=== PATIENT | female | born 1970 | race Caucasian/White ===

== ENCOUNTER 2016-02-19 14:08 | Emergency (ER) | payer OTHER ==
[~2016-02-19] VITALS: Ht 162.6 cm; Wt 63.5 kg
[~2016-02-19 14:08] MED LIST: AMPH20TA2 PO; ATV/2 PO; BACL10TA PO; GABA800T PO; HYDR-4079 PO; IBUP-1428 PO; OXYC20TA50 PO; PROM25TA9 PO; SIMV40TA2 PO; TRAM-10 PO
[2016-02-19 14:10] VITALS: TEMP 36.8; Ht 162.6 cm; Wt 63.5 kg
[2016-02-19 15:20] LABS: BASO ABS # 0.05 K/uL (0-0.2); COMPLETE YES; EOS % 2.8 %; HEMATOCRIT 38.3 % (37-47); LYMPH % 35.8 %; LYMPH ABS # 1.78 K/uL (1.2-3.4); MEAN CELL VOLUME 88.9 fL (80-100); MEAN CORPUSCULAR HEMOGLOBIN 29.5 pg (25-34); MEAN CORPUSCULAR HGB CONC 33.2 g/dl (32-36); MEAN PLATELET VOLUME 8.7 fL (7.4-10.4); MONO % 7.4 %; PLATELET COUNT 220 K/uL (130-400); RED BLOOD COUNT 4.31 M/uL (4.2-5.4); WHITE BLOOD COUNT 4.97 K/uL (4.8-10.8)
[2016-02-19 15:39] LABS: BUN/CREATININE RATIO 6.6 (10-20); CALCIUM 8.6 mg/dl (8.5-10.1); CREATININE 0.67 mg/dl (0.60-1.20); POTASSIUM 3.6 mmol/L (3.5-5.1)
[2016-02-19 15:41] LABS: ALB/GLOB RATIO 1.1 (0.9-2)
[2016-02-19] MEDS ORDERED: MUPI2OIN9 TOP (16:21)
[2016-02-19] MEDS ORDERED: CLOT1CRE80 TOP (16:21)
[2016-02-19] MEDS ORDERED: CEPH500C PO (16:21)
--- NOTE | 2016-02-19 16:25 | EMERGENCY ROOM VISIT NOTE ---
History First contact with patient: 14:19 Chief Complaint: INFECTION Stated Complaint: INFECTION AROUND MOUTH Nursing Triage Summary: Patient c/o infection around her mouth, went to family Dr and he told her he had no idea what it was. Began 1 1/2 weeks ago. Had it happen last month too, and was getting radiation, was prescribed keflex and it went away. It starts as a crack. Last radiation over one month ago. History of Present Illness The patient is a 45 year old female who presents to the Emergency Room via private vehicle with complaints of "infection around mouth". The patient states that she began with an infection around her mouth approximately 1 month ago. She was undergoing radiation for breast cancer and developed the red rash around her lips. She states that the radiation created a superficial infection on the skin and she was prescribed Keflex. She states that the Keflex also cleared up the redness around her mouth. She states that this redness begins after cracks in the corners of her mouth develop. The patient last had radiation 1 month ago and is not chemotherapy. The patient is a current smoker with half pack per day. The patient denies any numbness or tingling in her extremities. The redness around the mouth is particularly in the corners, and is painful and jarvis and is stinging in nature. There is no involvement within the mouth. The patient had another round of Keflex and the redness seemed to subside for some time but is now back. She went to see her family doctor yesterday who states they have never seen it before, she feels he is uneducated and therefore she is here today. She denies any fevers, chills, abdominal pain , other rashes. Review of Systems A complete 6-point Review of Systems was discussed with the patient, with pertinent positives and negatives listed in the History of Present Illness. All remaining Review of Systems questions can be considered negative unless otherwise specified. Past Medical/Surgical History Skin problems, pneumonia, kidney stones, bilateral knee, lumpectomy Family History Diabetes, high blood pressure, cancer, lung disease, kidney disease or stones, seizures. Social History Smoking Status: Current Every Day Smoker Occupation Status: employed Social History: Patient is unemployed, and lives at home with . She admits to tobacco use but denies alcohol use. Current/Historical Medications Scheduled Amphetamine-Dextroamphetamine 20MG (Adderall 20MG), 20 MG PO TID Aripiprazole (Abilify *), 10 MG PO QAM Baclofen (Lioresal), 10 MG PO BID Cephalexin Monohydrate (Keflex), 500 MG PO QID Cholecalciferol (Vitamin D), 2,000 UNITS PO QAM Citalopram (Celexa *), 40 MG PO QAM Clotrimazole (Topical) (Anti-Fungal), 1 APPLN TOP BID Gabapentin (Neurontin), 800 MG PO TID Hydrocodone/Acetaminophen 10MG/325MG (Mentor 10MG/325MG), 1 TAB PO 5XDAY Ibuprofen (Motrin), 1 TAB PO QID Mupirocin (Bactroban), 1 APPL TOP BID Oxycodone Hcl (Oxycontin), 40 MG PO Q12 Simvastatin (Zocor), 40 MG PO QAM Tramadol (Ultram), 50 MG PO QID Allergies Coded Allergies: Aspirin (Verified Allergy, Severe, PROBLEMS BREATHING, 02/19/16) Penicillins (Verified Allergy, Mild, ITCHING/HIVES, 02/19/16) Calcium Channel Blockers (Verified Allergy, Unknown, UNKNOWN, 02/19/16) Naproxen (Verified Allergy, Unknown, SOB, 02/19/16) TAKES IBUPROFEN AT HOME without issue Propoxyphene (Verified Allergy, Unknown, BREATHING PROBLEMS, 02/19/16) Physical Exam Vital Signs Date Time Temp Pulse Resp B/P Pulse Ox O2 Delivery O2 Flow Rate FiO2 02/19/16 16:44 76 14 113/72 97 02/19/16 16:03 78 15 118/78 99 Room Air 02/19/16 14:10 36.8 77 17 119/81 98 Room Air Physical Exam VITAL SIGNS - Vital signs and nursing notes were reviewed. Patient is afebrile , normotensive, non-tachycardic and is saturating well on room air 98%. GENERAL -45-year-old female appearing her stated age who is in no acute distress. Communicates well with provider and answers questions appropriately. SKIN - there is evidence of cheilitis with small cracks in the skin at the corner of the mouth. This has surrounding erythema localized to this region. The area is also covered with Vaseline. There appears to be no intraoral involvement. HEAD - NC/AT. EYES - PERRL with EOMI bilaterally. Sclera anicteric. Palpebral conjunctiva pink and moist with no injection noted. EARS - No deformities of external structures noted on gross examination bilaterally. No hemotympanum. External auditory canals without discharge or otorrhea. Tympanic membranes pearly samano without retraction or bulging. No fluid or purulent material visualized behind the TM. Handle of malleus, umbo, cone of light, pars tensa/flaccid all easily visualized. NOSE - Midline and without cyanosis. MOUTH/OROPHARYNX - Without perioral cyanosis. Buccal mucosa pink and moist and without leukoplakia. Tongue midline with equal elevation of palate bilaterally. No tonsillar hypertrophy, erythema, or exudates noted. Fair dentition noted. There are no white patches suggestive of shilpi intraorally. The erythema at the corners of the mouth is consistent with that of cheilitis, and is likely bacterial or fungal in nature. NECK - Neck with FROM. Supple to palpation. LUNGS - Chest wall symmetric without accessory muscle use, intercostals retractions, or central cyanosis. Normal vesicular breath sounds CTA B/L. No wheezes, rales, or rhonchi appreciated. CARDIAC - RRR with S1/S2. No murmur, rubs, or gallops appreciated. Medical Decision & Procedures Laboratory Results 02/19/16 15:10 Red Blood Count 4.31, Mean Corpuscular Volume 88.9, Mean Corpuscular Hemoglobin 29.5, Mean Corpuscular Hemoglobin Concent 33.2, Mean Platelet Volume 8.7, Neutrophils (%) (Auto) 53.0, Lymphocytes (%) (Auto) 35.8, Monocytes (%) (Auto) 7.4, Eosinophils (%) (Auto) 2.8, Basophils (%) (Auto) 1.0, Neutrophils # (Auto) 2.63, Lymphocytes # (Auto) 1.78, Monocytes # (Auto) 0.37, Eosinophils # (Auto) 0.14, Basophils # (Auto) 0.05 02/19/16 15:10 Test 02/19/16 15:10 White Blood Count 4.97 K/uL (4.8-10.8) Red Blood Count 4.31 M/uL (4.2-5.4) Hemoglobin 12.7 g/dL (12.0-16.0) Hematocrit 38.3 % (37-47) Mean Corpuscular Volume 88.9 fL (80-100) Mean Corpuscular Hemoglobin 29.5 pg (25-34) Mean Corpuscular Hemoglobin Concent 33.2 g/dl (32-36) Platelet Count 220 K/uL (130-400) Mean Platelet Volume 8.7 fL (7.4-10.4) Neutrophils (%) (Auto) 53.0 % Lymphocytes (%) (Auto) 35.8 % Monocytes (%) (Auto) 7.4 % Eosinophils (%) (Auto) 2.8 % Basophils (%) (Auto) 1.0 % Neutrophils # (Auto) 2.63 K/uL (1.4-6.5) Lymphocytes # (Auto) 1.78 K/uL (1.2-3.4) Monocytes # (Auto) 0.37 K/uL (0.11-0.59) Eosinophils # (Auto) 0.14 K/uL (0-0.5) Basophils # (Auto) 0.05 K/uL (0-0.2) RDW Standard Deviation 41.7 fL (36.4-46.3) RDW Coefficient of Variation 12.8 % (11.5-14.5) Immature Granulocyte % (Auto) 0.0 % Immature Granulocyte # (Auto) 0.00 K/uL (0.00-0.02) Anion Gap 8.0 mmol/L (3-11) Est Creatinine Clear Calc Drug Dose 89.7 ml/min Estimated GFR () 121.3 Estimated GFR (Non- 104.7 BUN/Creatinine Ratio 6.6 (10-20) Calcium Level 8.6 mg/dl (8.5-10.1) Total Bilirubin 0.1 mg/dl (0.2-1) Aspartate Amino Transf (AST/SGOT) 14 U/L (15-37) Alanine Aminotransferase (ALT/SGPT) 10 U/L (12-78) Alkaline Phosphatase 92 U/L (45-117) Total Protein 6.3 gm/dl (6.4-8.2) Albumin 3.3 gm/dl (3.4-5.0) Globulin 3.0 gm/dl (2.5-4.0) Albumin/Globulin Ratio 1.1 (0.9-2) Medical Decision Patient was seen and evaluated as above. After obtaining a thorough history and physical examination CBC was obtained to rule out any immunocompromising or pancytopenic events. This did not reveal any leukocytosis, or anemia. The CMP did reveal a decreased BUN at 4 which was discussed with the patient. There were no other significant abnormalities noted. The patient requested Keflex and initially I did not feel that this was appropriate as I was seeing what the latest literature was suggesting for treatment after discussing this with my attending. In review of UpToDate, it appears that an antifungal and antibacterial our best to use. I initially wanted to use fluconazole orally as well as Bactroban topically to help treat this potential bacterial or fungal infection. When I was prescribed fluconazole there was a flag identified pharmacologically as this medication interacts with her Celexa as well as her Zocor. This can cause life-threatening ailments such as QT prolongation, as well as rhabdomyolysis. Benefits versus risks were weighed and it was decided to forego the antifungal pill. The alternative was a cream but I did not want to use a fungal cream with an antibacterial cream at the same time. Therefore again after weighing benefits versus risks I did elect to put her on an oral antibiotic was Keflex 500 mg by mouth 4 times a day for 7 days as well as an antifungal cream which was sent to her pharmacy. She was also given a Bactroban ointment. She was instructed to take the Keflex as well as use the antifungal cream for the next 1-2 weeks. If at this point there is no resolution she is to switch to the antibacterial cream. She verbalized understanding. The patient was educated upon management. She was instructed to follow-up with her family doctor for recheck of the BUN and her condition today. She was educated upon worrisome symptoms in which to return. She had questions answered prior to discharge and she was discharged home in good condition. I decided not suspect any emergent or surgical nature to the patient 's family at this time. In the evaluation and treatment of this patient the following differential diagnoses were entertained: Cheilitis, thrush, Shilpi albicans infection, staph aureus infection, vitamin deficiency, among others. Impression Primary Impression: Cheilitis Departure Information Dispostion Home / Self-Care Condition GOOD Prescriptions Clotrimazole (Topical) (ANTI-FUNGAL) 1 % Cre 1 APPLN TOP BID for 14 Days, #1 TUBE Prov: Diego Lopez PA-C 02/19/16 Mupirocin (BACTROBAN) 2 % Oin 1 APPL TOP BID for 10 Days, #22 GM Prov: Diego Lopez PA-C 02/19/16 Cephalexin Monohydrate (Keflex) 500 Mg Cap 500 MG PO QID for 7 Days, #28 CAP Prov: Diego Lopez PA-C 02/19/16 Referrals No Doctor, Assigned (PCP) Patient Instructions A Signature Page, My [facility] Additional Instructions You were seen in the emergency department for an infection around her mouth. This is called cheilitis. You may begin the Keflex as we discussed. Please then use the topical antifungal cream. This is one pea sized amount applied to the area twice daily. Please do not with this in your mouth. If after 2weeks this persists, you may discontinue the topical antifungal and then begin with the topical antibiotic. It is recommended that you do not take both of these creams at the same time. As we discussed there was an interaction between the oral antifungal and your medication that was felt to be too much risk versus benefit. Your BUN today was 4, although this is not an emergent value it is recommended you have this repeated with your family doctor. Please call your family doctor to schedule a follow-up from today's visit. Please return to the emergency department with any new/concerning symptoms.
[2016-02-19 16:44] VITALS: BP 113/72; PULSE 76; O2SAT 97
[2016-02-19] MEDS ORDERED: CLX20 PO (17:07)
[2016-02-19] MEDS ORDERED: CHOL20009 PO (19:02)
[2016-02-19] MEDS ORDERED: ABL5 PO (20:51)
[2016-09-10] MEDS ORDERED: FLUT0.15 NAE (09:29)
[2016-09-10] MEDS ORDERED: IBUP-1428 PO (09:29)
[2016-09-10] MEDS ORDERED: CETI10TA84 PO (09:29)
[2016-09-10] MEDS ORDERED: ALBU18002 INH (09:29)
[2016-09-10] MEDS ORDERED: MONT1TAB3 PO (09:29)
== END 2016-02-19 16:47 | disposition home or self-care (01) ==
LOC: C.EDB 14:11 → C.EDD 16:47
DX: K13.0 Diseases of lips (principal); F17.200 Nicotine dependence, unspecified, uncomplicated; Z87.442 Personal history of urinary calculi; Z79.899 Other long term (current) drug therapy; Z88.0 Allergy status to penicillin; Z88.6 Allergy status to analgesic agent; Z88.8 Allergy status to other drugs, medicaments and biological substances; Z92.3 Personal history of irradiation; Z83.3 Family history of diabetes mellitus; Z82.49 Family history of ischemic heart disease and other diseases of the circulatory system; Z80.9 Family history of malignant neoplasm, unspecified; Z84.1 Family history of disorders of kidney and ureter; Z82.0 Family history of epilepsy and other diseases of the nervous system

== ENCOUNTER → 2016-04-28 | Outpatient (CLI) | payer OTHER ==
[~2016-04-28] MED LIST changes: +ABL/5 PO; +ABL5 PO; +ALBU18002 INH; -ATV/2 PO; +CETI10TA84 PO; +CHOL20009 PO; +CITA40TA12 PO; +CLOT1CRE80 TOP; +CLX20 PO; +FLUT0.15 NAE; +MONT1TAB3 PO; -PROM25TA9 PO
--- NOTE | 2016-04-28 14:27 | MAMMOGRAPHY REPORT ---
UNILATERAL RIGHT DIGITAL DIAGNOSTIC MAMMOGRAM TOMOSYNTHESIS WITH CAD: 04/28/2016 CLINICAL HISTORY: History of right breast cancer status post lumpectomy September 2015 and radiation . The patient reports no current complaints. TECHNIQUE: Breast tomosynthesis in addition to standard 2D mammography was performed. Current study was also evaluated with a Computer Aided Detection (CAD) system. Right CC and MLO 2-D and tomosynt hesis images and spot magnification right cc and ML views were obtained. COMPARISON: Comparison is made to exams dated: 09/03/2015 mammogram, 08/27/2015 mammogram, 02/25/2015 mammogram, 09/03/2015 stereotactic biopsy, 08/23/2014 mammogram, and 08/30/2014 mammogram - [facility]. BREAST COMPOSITION: The tissue of the right breast is heterogeneously dense, which may obscure smal l masses. FINDINGS: There are new post surgical changes in the right upper inner quadrant from prior lumpecto my, including architectural distortion and surgical clips at the lumpectomy bed. There is mild diff use right breast skin thickening, likely a sequela of radiation therapy. There are no suspicious ma sses, calcifications, or areas of nonsurgical architectural distortion noted in the right breast. IMPRESSION: ACR-BI-RADS CATEGORY 3: PROBABLY BENIGN Expected posttreatment changes in the right breast, without mammographic evidence of malignancy in t he right breast. Recommend bilateral diagnostic tomosynthesis mammograms in 6 months, to reevaluate the right breast posttreatment changes and for routine mammography of the left breast. The patient has been verbally notified of the results. Approximately 10% of breast cancers are not detected with mammography. A negative mammographic repor t should not delay biopsy if a clinically suggestive mass is present. Juany Butler M.D. ah/:04/28/2016 09:25:05 [employer] Lead Teacher: Merna MELTON(Colt)(M), [facility] letter sent: Personal History 3 BI-RADS Code: ACR-BI-RADS Category 3: Probably Benign
== END | disposition home or self-care (01) ==
LOC: C.MAMM 08:55
PROVIDERS: ATTEND Radiology Radiation Oncology
DX: Z08 Encounter for follow-up examination after completed treatment for malignant neoplasm (principal); Z85.3 Personal history of malignant neoplasm of breast

== ENCOUNTER → 2016-05-17 | Outpatient (CLI) | payer OTHER ==
[2016-05-17 17:30] LABS: BLOOD UREA NITROGEN 4 mg/dl (7-18); BUN/CREATININE RATIO 5.5 (10-20); CARBON DIOXIDE 24 mmol/L (21-32); CHLORIDE 108 mmol/L (98-107); CHOLESTEROL 170 mg/dl (0-200); CREATININE 0.71 mg/dl (0.60-1.20); GLUCOSE 75 mg/dl (70-99); POTASSIUM 3.4 mmol/L (3.5-5.1); SODIUM 142 mmol/L (136-145); TRIGLYCERIDES 178 mg/dl (0-150); VERY LOW DENSITY LIPOPROT CALC 36 mg/dl
[2016-05-17 17:34] LABS: CHOLESTEROL/HDL RATIO 6.5; HDL CHOLESTEROL 26 mg/dl; LDL CHOLESTEROL CALCULATED 108 mg/dl
== END | disposition home or self-care (01) ==
LOC: C.LABPVFM 11:50
PROVIDERS: ATTEND Nurse Practitioner
DX: E78.5 Hyperlipidemia, unspecified (principal); G43.909 Migraine, unspecified, not intractable, without status migrainosus; E55.9 Vitamin D deficiency, unspecified; Z51.81 Encounter for therapeutic drug level monitoring; Z79.1 Long term (current) use of non-steroidal anti-inflammatories (NSAID)

== ENCOUNTER → 2016-06-17 | Outpatient (CLI) | payer OTHER ==
[2016-06-17 17:37] LABS: BASO % 0.6 %; BASO ABS # 0.03 K/uL (0-0.2); COMPLETE YES; EOS % 2.9 %; HEMATOCRIT 33.9 % (37-47); IG% 0.2 %; LYMPH % 43.6 %; LYMPH ABS # 2.37 K/uL (1.2-3.4); MEAN CELL VOLUME 90.9 fL (80-100); MEAN CORPUSCULAR HEMOGLOBIN 29.8 pg (25-34); MEAN CORPUSCULAR HGB CONC 32.7 g/dl (32-36); MEAN PLATELET VOLUME 9.5 fL (7.4-10.4); MONO % 6.6 %; NEUT % 46.1 %; PLATELET COUNT 276 K/uL (130-400); RED BLOOD COUNT 3.73 M/uL (4.2-5.4); WHITE BLOOD COUNT 5.43 K/uL (4.8-10.8)
== END | disposition home or self-care (01) ==
LOC: C.LABPVFM 14:43
PROVIDERS: ATTEND Nurse Practitioner
DX: R53.83 Other fatigue (principal); R60.9 Edema, unspecified

== ENCOUNTER → 2016-09-07 | Outpatient (CLI) | payer OTHER ==
--- NOTE | 2016-09-07 15:29 | DIAGNOSTIC IMAGING REPORT ---
TWO VIEW CHEST CLINICAL HISTORY: Peripheral edema. Dyspnea and tachycardia. FINDINGS: PA and lateral chest radiographs are compared to study dated 09/13/2009. The heart is top normal for projection. There is atherosclerotic calcification of the thoracic aorta. The pulmonary vasculature is noncongested. Linear atelectasis versus scarring is seen in the left lower lung. No airspace consolidation or pleural effusion is identified. There is no pneumothorax. The skeletal structures are osteopenic. Degenerative change and mild hyperkyphosis are noted in the thoracic spine. There are healed right-sided rib fractures. IMPRESSION: No active disease in the chest. Electronically signed by: Grayson Faria M.D. 09/07/2016 3:28 PM Dictated Date/Time: 09/07/2016 3:27 PM
[2016-09-07 18:16] LABS: ALT/SGPT 19 U/L (12-78); AST/SGOT 13 U/L (15-37); BLOOD UREA NITROGEN 6 mg/dl (7-18); BUN/CREATININE RATIO 6.6 (10-20); CALCIUM 8.6 mg/dl (8.5-10.1); CARBON DIOXIDE 26 mmol/L (21-32); CHLORIDE 108 mmol/L (98-107); CREATININE 0.83 mg/dl (0.60-1.20); GLUCOSE 58 mg/dl (70-99); POTASSIUM 3.4 mmol/L (3.5-5.1); SODIUM 141 mmol/L (136-145)
[2016-09-07 18:26] LABS: ALB/GLOB RATIO 1.3 (0.9-2); ALKALINE PHOSPHATASE 59 U/L (45-117)
== END | disposition home or self-care (01) ==
LOC: C.RADPV 14:45
PROVIDERS: ATTEND Nurse Practitioner
DX: R60.9 Edema, unspecified (principal); R06.02 Shortness of breath; R00.0 Tachycardia, unspecified

== ENCOUNTER → 2016-09-10 | Outpatient (CLI) | payer OTHER ==
[2016-09-10 09:22] VITALS: BP 90/62; PULSE 92; TEMP 37.1; O2SAT 95
--- NOTE | 2016-09-10 10:43 | Radiation Oncology Follow-Up ---
Radiation Oncology Follow-Up Date of Visit Sep 10, 2016. Reason For Visit 6 month follow-up Radiation Completion Date 01/06/16 hypofractionation. Diagnosis (1) Breast cancer Status: Acute Onset Date: 09/03/2015 Stage: l (A) Permanent Comment: Abnormal mammogram 08/27/2015 Status post stereotactic biopsy 09/03/2015 revealing infiltrating ductal carcinoma Estrogen receptor positive Status post breast MRI 09/29/2015 Status post MRI guided biopsy of the left breast 10/01/2015 benign Status post lumpectomy with sentinel lymph node biopsy 10/08/2015 No residual tumor Stage pT1a p N0M0 Status post completion of radiation therapy 01/06/2016 received 5130 cGy utilizing hypo-fractionation Patient declined antiestrogen therapy Last Edited By: Christen Wagner on Feb 13, 2016 09:46 History of Present Illness This is a 45-year-old white female who had an abnormal mammogram 08/30/2014. This showed grouped calcifications in the right breast at 12:00, which are probably benign and likely represent milk of calcium. Recommend follow-up mammogram of the right breast in 6 months for reevaluation. Multiple bilateral benign cysts. Questionable architectural distortion in the right lateral breast did not persist on additional views, without corresponding sonographic abnormality evident. Findings benign and felt to represent normal fibroglandular tissue. 6 month mammogram was recommended for stability. She had a recheck mammogram 02/25/2015. This showed stable 13 mm cluster of probable benign microcalcifications within the central right breast dating back to 08/30/2014. However, longer stability as needed and another short interval follow-up right mammogram with repeat spot magnification views is recommended in 6 months. She'll be due for left breast mammogram at that time. She had a bilateral mammogram 08/27/2015. This showed abnormality of the right breast and stereotactic guided right breast biopsy was recommended for a 9 mm cluster of amorphous microcalcifications in the right central breast. She underwent a stereotactic guided biopsy 09/03/2015. This revealed infiltrating ductal carcinoma grade 1. Assure receptor was positive. There was no DCIS or LCIS. There was no lymphovascular invasion. There were 2 sites that were 0.1 and 0.25 cm in greatest dimension. Specimen [id number]. She then underwent breast MRIs 09/29/2015. This showed suspect ability artifact from a metallic biopsy marker is seen in the central right breast, denoting the location of the previous stereotactic biopsy yielding an infiltrating carcinoma. This is very subtle possibly non-mass enhancement versus background parenchymal enhancement medial and superior to the biopsy marker measuring approximately 3 cm in diameter. This is located within 2 cm of the biopsy marker and can likely be excised at the time of definitive surgical management. It should be noted that residual microcalcifications are present mammographically 1.9 cm laterally and 1.3 cm superior to the metallic biopsy marker mammographically, and considered bracketing at time of definitive surgery, if breast conservation therapy is desired. 3 conspicuous enhancing foci in the 6:00 medial to posterior left breast that are intermediate. Although these could be within the range of background, given moderate back on parenchymal enhancement bilaterally, the most anterior lesion demonstrates central suspicious without kinetics. Further second look ultrasound and possible ultrasound-guided biopsy was recommended. She underwent an MRI guided biopsy of the left breast finding. On 10/01/2015 this showed a benign area of fibrocystic changes. Specimen [id number]. She underwent a lumpectomy and sentinel lymph node biopsy 10/08/2015. The lumpectomy specimen showed atypical lobular hyperplasia. The specimen was negative for DCIS and invasive carcinoma. Additional inferior margin was taken and was negative for DCIS and invasive cancer. An additional superior margin also negative for DCIS and invasive cancer. One sentinel lymph node was evaluated and was negative for metastatic disease. Specimen [id number]. With this finding she was referred to our office to discuss radiation therapy. She underwent CT simulation and was found to be a candidate for hypo- fractionation. Radiation was completed 01/06/2016. She received 5130 cGy. Interim History She denies any changes to her breasts. She has noted no masses or tenderness no change of the axilla. She's had no swelling of her arm. She is up-to-date on mammography. She had been seen previously in medical oncology and did decline antiestrogen therapy. She is having some health issues and is being followed by her primary care Susu Adams nurse practitioner. She has of late had a problem with pinkeye, ear infection, fungal infection, and swelling of the lower extremities. She is now on Lasix. She is to follow-up with a phone call on Tuesday with update to Ms. Adams. Allergies Coded Allergies: Aspirin (Verified Allergy, Severe, PROBLEMS BREATHING, 02/19/16) Penicillins (Verified Allergy, Mild, ITCHING/HIVES, 02/19/16) Calcium Channel Blockers (Verified Allergy, Unknown, UNKNOWN, 02/19/16) Naproxen (Verified Allergy, Unknown, SOB, 02/19/16) TAKES IBUPROFEN AT HOME without issue Propoxyphene (Verified Allergy, Unknown, BREATHING PROBLEMS, 02/19/16) Home Medications Scheduled Amphetamine-Dextroamphetamine 20MG (Adderall 20MG), 20 MG PO TID Aripiprazole (Abilify *), 10 MG PO QAM Baclofen (Lioresal), 10 MG PO BID Cetirizine (Zyrtec), 10 MG PO DAILY Cholecalciferol (Vitamin D), 2,000 UNITS PO QAM Citalopram (Celexa *), 40 MG PO QAM Clotrimazole (Topical) (Anti-Fungal), 1 APPLN TOP BID Fluticasone Propionate (Nasal) (Flonase Allergy Relief), 1 SPRAY MAGALYS BID Gabapentin (Neurontin), 800 MG PO TID Hydrocodone/Acetaminophen 10MG/325MG (Brooks 10MG/325MG), 1 TAB PO 5XDAY Montelukast Sodium (Singulair), 1 TAB PO DAILY Oxycodone Hcl (Oxycontin), 40 MG PO Q12 Simvastatin (Zocor), 40 MG PO QAM Scheduled PRN Albuterol Sulfate (Proair Respiclick), 1 PUFF INH QID PRN for Shortness of Breath Ibuprofen (Motrin), 800 MG PO QID PRN for Pain Tramadol (Ultram), 50 MG PO QID PRN for Pain Review of Systems Gastrointestinal: Symptoms: WNL Oral: Symptoms: No Problems Other Oral Symptoms: Currently w/fungal infection around outside of mouth - on medication now Respiratory: Symptoms: Productive Cough Sputum Character: Clear sputum and on occassion is yellow; Other Respiratory: Continues to smoke; Urinary: Symptoms: WNL Skin: Symptoms: No Problems Breast: Right Upper Arm Measurement: 28.3 Right Mid Arm Measurement: 23.5 Right Wrist Measurement: 15.8 Left Upper Arm Measurement: 27.5 Left Mid Arm Measurement: 23.0 Left Wrist Measurement: 15.8 Arm Dominence: Right Patient Cosmetic Evaluation: Good Staff Cosmetic Evalaluation: Good Physical Exam Vital Signs Date Time Temp Pulse Resp B/P (MAP) Pulse Ox O2 Delivery O2 Flow Rate FiO2 09/10/16 09:22 37.1 92 12 90/62 95 Pain: Patient Pain Scale: 0 - 10 Initial Pain Intensity: 0.0 Fatigue: None General Appearance: no apparent distress Eyes: normal inspection, EOMI ENT: normal ENT inspection, hearing grossly normal, pharynx normal, + pertinent finding (angular andrade low cyst) Neck: no adenopathy, thyroid normal Respiratory/Chest: lungs clear, no respiratory distress, no accessory muscle use Breast: Breast examination reveals well-healed incisions of the right breast. There is slight hyperpigmentation of the upper inner portion of the breast. There are no masses or tenderness and no axillary adenopathy. She has no skin retractions or nipple changes. Using the [place] score cosmesis she has a good outcome. Left breast showed no masses or tenderness and no axillary adenopathy. Cardiovascular: regular rate, rhythm, no gallop, no murmur Abdomen: normal bowel sounds, soft Extremities: + pertinent finding (+2 edema of the lower extremities, negative Homans sign) Neurologic/Psychiatric: no motor/sensory deficits, alert, normal mood/affect Skin: warm/dry Laboratory Studies Test 06/17/16 14:50 09/07/16 15:05 White Blood Count 5.43 K/uL (4.8-10.8) Red Blood Count 3.73 M/uL (4.2-5.4) Hemoglobin 11.1 g/dL (12.0-16.0) Hematocrit 33.9 % (37-47) Mean Corpuscular Volume 90.9 fL (80-100) Mean Corpuscular Hemoglobin 29.8 pg (25-34) Mean Corpuscular Hemoglobin Concent 32.7 g/dl (32-36) Platelet Count 276 K/uL (130-400) Mean Platelet Volume 9.5 fL (7.4-10.4) Neutrophils (%) (Auto) 46.1 % Lymphocytes (%) (Auto) 43.6 % Monocytes (%) (Auto) 6.6 % Eosinophils (%) (Auto) 2.9 % Basophils (%) (Auto) 0.6 % Neutrophils # (Auto) 2.50 K/uL (1.4-6.5) Lymphocytes # (Auto) 2.37 K/uL (1.2-3.4) Monocytes # (Auto) 0.36 K/uL (0.11-0.59) Eosinophils # (Auto) 0.16 K/uL (0-0.5) Basophils # (Auto) 0.03 K/uL (0-0.2) RDW Standard Deviation 48.1 fL (36.4-46.3) RDW Coefficient of Variation 14.3 % (11.5-14.5) Immature Granulocyte % (Auto) 0.2 % Immature Granulocyte # (Auto) 0.01 K/uL (0.00-0.02) Thyroid Stimulating Hormone (TSH) 2.300 uIu/ml (0.300-4.500) 3.300 uIu/ml (0.300-4.500) Sodium Level 141 mmol/L (136-145) Potassium Level 3.4 mmol/L (3.5-5.1) Chloride Level 108 mmol/L (98-107) Carbon Dioxide Level 26 mmol/L (21-32) Anion Gap 7.0 mmol/L (3-11) Blood Urea Nitrogen 6 mg/dl (7-18) Creatinine 0.83 mg/dl (0.60-1.20) Estimated GFR () 96.6 Estimated GFR (Non- 83.4 BUN/Creatinine Ratio 6.6 (10-20) Random Glucose 58 mg/dl (70-99) Calcium Level 8.6 mg/dl (8.5-10.1) Total Bilirubin 0.2 mg/dl (0.2-1) Aspartate Amino Transferase (AST) 13 U/L (15-37) Alanine Aminotransferase (ALT) 19 U/L (12-78) Alkaline Phosphatase 59 U/L (45-117) Pro-B-Type Natriuretic Peptide 117 pg/ml (0-450) Total Protein 6.1 gm/dl (6.4-8.2) Albumin 3.4 gm/dl (3.4-5.0) Globulin 2.7 gm/dl (2.5-4.0) Albumin/Globulin Ratio 1.3 (0.9-2) Additional Studies Patient: AYLIN PEÑA [facility] Rec: [id number] Address1: [address] [place] [address] Address2: Acct ID: [id number] Date: 1970 Sex: F Ref Phy: Christen Wagner PA-C Att Phy: Christen Wagner PA-C Thalia Phy: Apolinar See M.D. Inter Phy: Juany Butler MD [facility] Zip: [place] [address] SC: C.MAMM Report #: [id number] Hyperbaric Tech: STEW Diagnosis: F/U RADIATION Service Date: 04/28/16 MNE: [id number] Ordering Dr: Christen Wagner PA-C CC: Christen Wagner PA-C CONF: DICTATED BY: Juany Butler MD MAMMOGRAPHY REPORT UNILATERAL RIGHT DIGITAL DIAGNOSTIC MAMMOGRAM TOMOSYNTHESIS WITH CAD: 04/28/2016 CLINICAL HISTORY: History of right breast cancer status post lumpectomy September 2015 and radiation therapy. The patient reports no current complaints. TECHNIQUE: Breast tomosynthesis in addition to standard 2D mammography was performed. Current study was also evaluated with a Computer Aided Detection (CAD ) system. Right CC and MLO 2-D and tomosynthesis images and spot magnification right cc and ML views were obtained. COMPARISON: Comparison is made to exams dated: 09/03/2015 mammogram, 08/27/2015 mammogram, 02/25/2015 mammogram, 09/03/2015 stereotactic biopsy, 08/23/2014 mammogram, and 08/30/2014 mammogram - [facility]. BREAST COMPOSITION: The tissue of the right breast is heterogeneously dense, which may obscure small masses. FINDINGS: There are new post surgical changes in the right upper inner quadrant from prior lumpectomy, including architectural distortion and surgical clips at the lumpectomy bed. There is mild diffuse right breast skin thickening , likely a sequela of radiation therapy. There are no suspicious masses, calcifications, or areas of nonsurgical architectural distortion noted in the right breast. IMPRESSION: ACR-BI-RADS CATEGORY 3: PROBABLY BENIGN Expected posttreatment changes in the right breast, without mammographic evidence of malignancy in the right breast. Recommend bilateral diagnostic tomosynthesis mammograms in 6 months, to reevaluate the right breast posttreatment changes and for routine mammography of the left breast. The patient has been verbally notified of the results. Approximately 10% of breast cancers are not detected with mammography. A negative mammographic report should not delay biopsy if a clinically suggestive mass is present. Juany Butler M.D. ah/:04/28/2016 09:25:05 Photovoltaic Solar Cell Designer: Merna ROMAN)(Marlen), [facility] letter sent: Personal History 3 BI-RADS Code: ACR-BI-RADS Category 3: Probably Benign Dictated by: Juany Butler MD Signed by: Juany Butler MD Assessment & Plan Plan: Continue follow-up with her primary care provider. She is to call with an update in regards to the lower extremity swelling. She feels the Lasix is not helping currently. Continue with scheduled mammography. We asked her to return to our office in 1 year. She may call if she has any questions or concerns in the interim. Total Time In Follow-Up I spent 20 minutes 60 the patient is performing examination. I spent 15 minutes reviewing information in completing this note. AK Copy To Lionel Yeager M.D.; Adam Perez D.O.; Susu Soto CMarcianoRMarcianoNMarcianoP Problem Qualifiers (1) Breast cancer: Breast location: central portion of breast Estrogen receptor status: positive Patient sex: female Laterality: right Qualified Codes: C50.111 - Malignant neoplasm of central portion of right female breast; Z17.0 - Estrogen receptor positive status [ER+]
== END | disposition home or self-care (01) ==
LOC: C.ONC 09:05
PROVIDERS: ATTEND Physician Assistant Medical
DX: Z08 Encounter for follow-up examination after completed treatment for malignant neoplasm (principal); Z92.3 Personal history of irradiation; Z85.3 Personal history of malignant neoplasm of breast

== ENCOUNTER 2016-09-14 13:28 | Emergency (ER) | payer OTHER ==
[~2016-09-14] VITALS: Ht 162.6 cm; Wt 70.3 kg
[~2016-09-14 13:28] MED LIST changes: -ABL/5 PO; -CITA40TA12 PO
[2016-09-14 14:31] VITALS: O2SAT 95
--- NOTE | 2016-09-14 14:46 | DIAGNOSTIC IMAGING REPORT ---
SINGLE VIEW CHEST CLINICAL HISTORY: Generalized weakness. FINDINGS: An AP, portable, upright chest radiograph is compared to study dated 09/07/2016 and correlated with chest CT dated 05/27/2008. The examination is degraded by portable technique and patient rotation. The cardiomediastinal silhouette is unremarkable. Linear atelectasis versus scarring is seen in the left lower lung. No airspace consolidation or large pleural effusion is identified. No pneumothorax is seen. The skeletal structures appear osteopenic. There is a healed right-sided rib fracture. IMPRESSION: No acute cardiopulmonary abnormality. Electronically signed by: Grayson Faria M.D. 09/14/2016 2:45 PM Dictated Date/Time: 09/14/2016 2:43 PM
[2016-09-14 14:48] VITALS: Ht 162.6 cm; Wt 70.3 kg
[2016-09-14] MEDS ORDERED: CITA40TA12 PO (15:10)
[2016-09-14] MEDS ORDERED: ABL/5 PO (15:10)
[2016-09-14 15:17] LABS: ALT/SGPT 23 U/L (12-78); BLOOD UREA NITROGEN 7 mg/dl (7-18); BUN/CREATININE RATIO 8.4 (10-20); C-REACTIVE PROTEIN 0.42 mg/dl (0-0.29); CALCIUM 8.7 mg/dl (8.5-10.1); CARBON DIOXIDE 28 mmol/L (21-32); CHLORIDE 103 mmol/L (98-107); CREATININE 0.87 mg/dl (0.60-1.20); GLUCOSE 72 mg/dl (70-99); MAGNESIUM 1.7 mg/dl (1.8-2.4); POTASSIUM 3.2 mmol/L (3.5-5.1); SODIUM 136 mmol/L (136-145)
[2016-09-14 15:24] LABS: PARTIAL THROMBOPLASTIN RATIO 1.3
[2016-09-14 15:26] LABS: ALKALINE PHOSPHATASE 65 U/L (45-117); AST/SGOT 19 U/L (15-37); CKMB/CK RATIO 3.1 (0-3.0)
--- NOTE | 2016-09-14 15:29 | DIAGNOSTIC IMAGING REPORT ---
BILATERAL LOWER EXTREMITY VENOUS DOPPLER HISTORY: Bilateral leg swelling. COMPARISON STUDY: None. FINDINGS: There is normal compressibility, flow, and augmentation within the bilateral lower extremity deep venous systems. IMPRESSION: No DVT within the right or left lower extremity. Electronically signed by: Nestor Camacho M.D. 09/14/2016 3:28 PM Dictated Date/Time: 09/14/2016 3:28 PM
[2016-09-14 15:32] LABS: BASO % 0.4 %; BASO ABS # 0.03 K/uL (0-0.2); COMPLETE YES; HEMATOCRIT 34.6 % (37-47); IG% 0.1 %; LYMPH % 39.4 %; LYMPH ABS # 2.91 K/uL (1.2-3.4); MEAN CELL VOLUME 90.3 fL (80-100); MEAN CORPUSCULAR HEMOGLOBIN 31.1 pg (25-34); MEAN CORPUSCULAR HGB CONC 34.4 g/dl (32-36); MEAN PLATELET VOLUME 9.2 fL (7.4-10.4); MONO % 7.5 %; NEUT % 50.6 %; PLATELET COUNT 240 K/uL (130-400); RED BLOOD COUNT 3.83 M/uL (4.2-5.4); WHITE BLOOD COUNT 7.38 K/uL (4.8-10.8)
[2016-09-14 16:25] LABS: URINE APPEARANCE CLEAR (CLEAR); URINE BILIRUBIN NEG (NEG); URINE COLOR YELLOW; URINE NITRITE NEG (NEG); URINE PH 5.5 (4.5-7.5); URINE SPECIFIC GRAVITY 1.008 (1.000-1.030); UROBILINOGEN NEG (NEG)
[2016-09-14] MEDS ORDERED: OPTIRAY 320 IV PRN (16:30)
[2016-09-14 16:33] LABS: MANUAL MICROSCOPIC REQUIRED? NO; REVIEW REQ? NO
--- NOTE | 2016-09-14 17:00 | DIAGNOSTIC IMAGING REPORT ---
ABD/PELVIS IV CONTRAST ONLY CLINICAL HISTORY: 46 years-old Female presenting with LE swelling, breast CA, venogram phase. TECHNIQUE: Multidetector CT of the abdomen and pelvis was performed after the administration of intravenous contrast. IV contrast: 119 mL of Optiray 320. A dose lowering technique was used consistent with the principles of ALARA (as low as reasonably achievable). COMPARISON: 02/02/2010. CT DOSE (mGy.cm): The estimated cumulative dose is 606.97 mGy.cm. FINDINGS: Structural Metal Fabricator Apprentice topogram: Unremarkable. Lung bases: Scattered groundglass opacities at the lung bases, possibly atelectasis. Normal heart size. No pericardial or pleural effusion. Biopsy clip noted in the right breast. Liver: Normal morphology. No liver lesion. Patent hepatic vasculature. Biliary: No intrahepatic or extrahepatic biliary ductal dilatation. Normal gallbladder. Pancreas: Normal. Spleen: Normal. Adrenal glands: Normal. 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 Previously noted bilateral nephrolithiasis again noted although less appreciated given the presence of excreted contrast. The largest calculus is located at the left lower pole measuring 4 mm. No hydronephrosis. Mild dilatation of the left ureter without evidence of an obstructing calculus. Gastrointestinal tract: Mild stool burden throughout normal caliber colon. Normal appendix. No bowel obstruction. Peritoneal cavity: No free fluid or intraperitoneal gas. Bladder: Mild circumferential bladder wall thickening and mucosal hyperenhancement. Pelvic organs: Uterus and ovaries normal. Prominent follicles in the left ovary. Vasculature: Atherosclerosis of the normal caliber abdominal aorta. IVC patent as are the bilateral iliac vessels. Common femoral veins also patent. Lymph nodes: No enlarged lymph nodes in the abdomen or pelvis. Abdominal wall: Mild subcutaneous edema along the lateral proximal thighs. No significant discrepancy between the bilateral lower extremities. Musculoskeletal: Sclerotic lesion in the left ileum likely bone island, stable from prior. Mild degenerative change at L5-S1. No destructive osseous lesion. IMPRESSION: 1. No significant discrepancy of size of the proximal lower extremities. Patent veins. 2. Mild circumference of bladder wall thickening and mucosal hyperenhancement consistent with cystitis. Correlate with urinalysis. 3. Bilateral nephrolithiasis. 4. No evidence of metastatic disease in the abdomen or pelvis. Electronically signed by: Wolf Luna M.D. 09/14/2016 4:58 PM Dictated Date/Time: 09/14/2016 4:48 PM
--- NOTE | 2016-09-14 17:02 | DIAGNOSTIC IMAGING REPORT ---
CT ANGIOGRAM OF THE CHEST CLINICAL HISTORY: Elevated d-dimer. Lower extremity edema COMPARISON STUDY: Chest x-ray dated 09/14/2016. Chest CT scan dated 05/27/2008. TECHNIQUE: Following the IV administration of 118 cc of Optiray 320, CT angiogram of the chest was performed from the upper abdomen to the thoracic inlet utilizing the pulmonary embolus protocol. Images are reviewed in the axial, sagittal, and coronal planes. 3-D MIPS images are created and assessed. IV contrast was administered without complication. A dose lowering technique was utilized adhering to the principles of ALARA. FINDINGS: Thyroid: Imaged portions of the thyroid gland are normal in size and attenuation. Thoracic aorta: The thoracic aorta is normal in caliber and demonstrates bovine variant arch anatomy. The left vertebral artery arises directly from the arch. No dissection is seen. There is less than 50% stenosis in the left subclavian artery secondary to soft plaque. This is seen on axial image #[id number] Pulmonary vasculature: The pulmonary trunk is normal in caliber. There are no filling defects identified in main, lobar, or segmental pulmonary branches to suggest pulmonary embolus. Heart: The heart is normal in size and configuration, and without pericardial effusion. Lungs and pleural spaces: Mild paraseptal emphysematous change is seen at the lung apices. No airspace consolidation or pleural effusion is identified. Atelectasis is present in the lower lobes. Mild diffuse peribronchial thickening is noted. The trachea and central airways are clear. Mediastinum: There is no mediastinal lymphadenopathy. Roshni: Clear. Axillae: There is no axillary lymphadenopathy. Upper abdomen: There is a punctate nonobstructing calculus in the upper pole of the right kidney. A tiny hiatal hernia is observed. Colonic fecal retention is noted. There are small calcified hepatic granulomas. Skeletal structures: No lytic or blastic bony lesions are seen. IMPRESSION: 1. There is no evidence of pulmonary embolus in the main, lobar, or segmental pulmonary arteries. 2. Mild emphysema. 3. There is no airspace consolidation or pleural effusion. 4. Punctate nonobstructing right renal calculus. 5. Additional findings as above. Electronically signed by: Grayson Faria M.D. 09/14/2016 5:00 PM Dictated Date/Time: 09/14/2016 4:54 PM
[2016-09-14] MEDS ORDERED: POTASSIUM CHLORIDE 10 MEQ TABCR PO STA (17:49)
[2016-09-14 18:41] VITALS: BP 104/73; PULSE 62; TEMP 37.1; O2SAT 97
--- NOTE | 2016-09-14 21:43 | EMERGENCY ROOM VISIT NOTE ---
History Report prepared by Danny: Sly Albright Under the Supervision of: Dr. En Gutierrez M.D. First contact with patient: 14:08 Chief Complaint: ILLNESS Stated Complaint: WATER RETENTION History of Present Illness The patient is a 46 year old female who presents to the Emergency Room with complaints of persistent bilateral lower extremity edema that began 2 weeks ago. She saw her PCP at this time and was started on Lasix and Potassium. The patient did not have any relief so she was told yesterday to increase her Lasix to 2 pills. This also did not help, so today, her PCP told her to come to the ER. This has never happened to her before. When she saw her PCP, she received blood work, a chest x-ray, and an ECG which all were normal. When she is up and walking around, her leg swelling is worse. She denies any recent travels. She also denies any other medication changes. She is currently on Tramadol, Neurontin, and OxyContin for her back pain. She notes that she has been on Neurontin 800 mg three times a day for two years without any problems. She has a history of breast cancer. Pt denies LOC, headache, fevers, chills, diaphoresis , visual changes, neck pain, chest pain, breathing difficulties, nausea, vomiting, abdominal pain, melena, hematochezia, urinary symptoms, numbness, weakness, lymphadenopathy, rash, or other complaints. She notes that she is on Doxycycline for a bilateral ear infection. She started this after her legs were swollen. Source of History: patient Onset: 2 weeks ago Position: leg (bilateral) Symptom Intensity: moderate Quality: other (Edema) Timing: other (Persistent) Note: She states that her Lasix has not made her urinate more frequently. Review of Systems See HPI for pertinent positives and negatives. A total of ten systems were reviewed and were otherwise negative. Past Medical & Surgical Medical Problems: (1) Chronic back pain Family History Omitted secondary to age. Social History Smoking Status: Current Every Day Smoker Smokeless Tobacco Use: No Drug Use: none Occupation Status: employed Current/Historical Medications Scheduled Amphetamine-Dextroamphetamine 20MG (Adderall 20MG), 20 MG PO TID Aripiprazole (Abilify), 1 TAB PO DAILY Baclofen (Lioresal), 10 MG PO BID Cetirizine (Zyrtec), 10 MG PO DAILY Cholecalciferol (Vitamin D), 2,000 UNITS PO QAM Citalopram Hydrobromide (Celexa), 1 TAB PO DAILY Clotrimazole (Topical) (Anti-Fungal), 1 APPLN TOP BID Fluticasone Propionate (Nasal) (Flonase Allergy Relief), 1 SPRAY MAGALYS BID Gabapentin (Neurontin), 800 MG PO TID Hydrocodone/Acetaminophen 10MG/325MG ([place] 10MG/325MG), 1 TAB PO 5XDAY Montelukast Sodium (Singulair), 1 TAB PO DAILY Oxycodone Hcl (Oxycontin), 40 MG PO Q12 Simvastatin (Zocor), 40 MG PO QAM Scheduled PRN Albuterol Sulfate (Proair Respiclick), 1 PUFF INH QID PRN for Shortness of Breath Ibuprofen (Motrin), 800 MG PO QID PRN for Pain Tramadol (Ultram), 50 MG PO QID PRN for Pain Allergies Coded Allergies: Aspirin (Verified Allergy, Severe, PROBLEMS BREATHING, 02/19/16) Penicillins (Verified Allergy, Mild, ITCHING/HIVES, 02/19/16) Calcium Channel Blockers (Verified Allergy, Unknown, UNKNOWN, 02/19/16) Naproxen (Verified Allergy, Unknown, SOB, 02/19/16) TAKES IBUPROFEN AT HOME without issue Propoxyphene (Verified Allergy, Unknown, BREATHING PROBLEMS, 02/19/16) Physical Exam Vital Signs Date Time Temp Pulse Resp B/P (MAP) Pulse Ox O2 Delivery O2 Flow Rate FiO2 09/14/16 18:41 37.1 62 20 104/73 97 09/14/16 18:17 62 20 104/73 97 Room Air 09/14/16 16:30 114/74 09/14/16 14:36 77 09/14/16 14:31 77 12 105/69 95 Room Air 09/14/16 14:31 95 Room Air 09/14/16 13:32 37.1 93 20 116/75 97 Room Air Physical Exam GENERAL: Awake, alert, well-appearing, in no distress HENT: Normocephalic, atraumatic. Oropharynx unremarkable. EYES: Normal conjunctiva. Sclera non-icteric. NECK: Supple. No nuchal rigidity. FROM. No JVD. RESPIRATORY: Clear to auscultation. CARDIAC: Regular rate, normal rhythm. Extremities warm and well perfused. Pulses equal. ABDOMEN: Soft, non-distended. No tenderness to palpation. No rebound or guarding. No masses. RECTAL: Deferred. MUSCULOSKELETAL: Chest examination reveals no tenderness. The back is symmetrical on inspection without obvious abnormality. There is no CVA tenderness to palpation. No joint edema. LOWER EXTREMITIES: Calves are equal size bilaterally and non-tender. 2+ pitting edema bilaterally. No discoloration. NEURO: Normal sensorium. No sensory or motor deficits noted. SKIN: No rash or jaundice noted. Medical Decision & Procedures ER Provider Diagnostic Interpretation: Radiology results as stated below per my review and radiologist interpretation: SINGLE VIEW CHEST CLINICAL HISTORY: Generalized weakness. FINDINGS: An AP, portable, upright chest radiograph is compared to study dated 09/07/2016 and correlated with chest CT dated 05/27/2008. The examination is degraded by portable technique and patient rotation. The cardiomediastinal silhouette is unremarkable. Linear atelectasis versus scarring is seen in the left lower lung. No airspace consolidation or large pleural effusion is identified. No pneumothorax is seen. The skeletal structures appear osteopenic. There is a healed right-sided rib fracture. IMPRESSION: No acute cardiopulmonary abnormality. Electronically signed by: Grayson Faria M.D. 09/14/2016 2:45 PM Dictated Date/Time: 09/14/2016 2:43 PM BILATERAL LOWER EXTREMITY VENOUS DOPPLER HISTORY: Bilateral leg swelling. COMPARISON STUDY: None. FINDINGS: There is normal compressibility, flow, and augmentation within the bilateral lower extremity deep venous systems. IMPRESSION: No DVT within the right or left lower extremity. Electronically signed by: Nestor Camacho M.D. 09/14/2016 3:28 PM Dictated Date/Time: 09/14/2016 3:[address] ANGIOGRAM OF THE CHEST CLINICAL HISTORY: Elevated d-dimer. Lower extremity edema COMPARISON STUDY: Chest x-ray dated 09/14/2016. Chest CT scan dated 05/27/2008. TECHNIQUE: Following the IV administration of 118 cc of Optiray 320, CT angiogram of the chest was performed from the upper abdomen to the thoracic inlet utilizing the pulmonary embolus protocol. Images are reviewed in the axial, sagittal, and coronal planes. 3-D MIPS images are created and assessed. IV contrast was administered without complication. A dose lowering technique was utilized adhering to the principles of ALARA. FINDINGS: Thyroid: Imaged portions of the thyroid gland are normal in size and attenuation. Thoracic aorta: The thoracic aorta is normal in caliber and demonstrates bovine variant arch anatomy. The left vertebral artery arises directly from the arch. No dissection is seen. There is less than 50% stenosis in the left subclavian artery secondary to soft plaque. This is seen on axial image #[id number] Pulmonary vasculature: The pulmonary trunk is normal in caliber. There are no filling defects identified in main, lobar, or segmental pulmonary branches to suggest pulmonary embolus. Heart: The heart is normal in size and configuration, and without pericardial effusion. Lungs and pleural spaces: Mild paraseptal emphysematous change is seen at the lung apices. No airspace consolidation or pleural effusion is identified. Atelectasis is present in the lower lobes. Mild diffuse peribronchial thickening is noted. The trachea and central airways are clear. Mediastinum: There is no mediastinal lymphadenopathy. Roshni: Clear. Axillae: There is no axillary lymphadenopathy. Upper abdomen: There is a punctate nonobstructing calculus in the upper pole of the right kidney. A tiny hiatal hernia is observed. Colonic fecal retention is noted. There are small calcified hepatic granulomas. Skeletal structures: No lytic or blastic bony lesions are seen. IMPRESSION: 1. There is no evidence of pulmonary embolus in the main, lobar, or segmental pulmonary arteries. 2. Mild emphysema. 3. There is no airspace consolidation or pleural effusion. 4. Punctate nonobstructing right renal calculus. 5. Additional findings as above. Electronically signed by: Grayson Faria M.D. 09/14/2016 5:00 PM Dictated Date/Time: 09/14/2016 4:54 PM ABD/PELVIS IV CONTRAST ONLY CLINICAL HISTORY: 46 years-old Female presenting with LE swelling, breast CA, venogram phase. TECHNIQUE: Multidetector CT of the abdomen and pelvis was performed after the administration of intravenous contrast. IV contrast: 119 mL of Optiray 320. A dose lowering technique was used consistent with the principles of ALARA (as low as reasonably achievable). COMPARISON: 02/02/2010. CT DOSE (mGy.cm): The estimated cumulative dose is 606.97 mGy.cm. FINDINGS: Straw Hat Brusher topogram: Unremarkable. Lung bases: Scattered groundglass opacities at the lung bases, possibly atelectasis. Normal heart size. No pericardial or pleural effusion. Biopsy clip noted in the right breast. Liver: Normal morphology. No liver lesion. Patent hepatic vasculature. Biliary: No intrahepatic or extrahepatic biliary ductal dilatation. Normal gallbladder. Pancreas: Normal. Spleen: Normal. Adrenal glands: Normal. 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 Previously noted bilateral nephrolithiasis again noted although less appreciated given the presence of excreted contrast. The largest calculus is located at the left lower pole measuring 4 mm. No hydronephrosis. Mild dilatation of the left ureter without evidence of an obstructing calculus. Gastrointestinal tract: Mild stool burden throughout normal caliber colon. Normal appendix. No bowel obstruction. Peritoneal cavity: No free fluid or intraperitoneal gas. Bladder: Mild circumferential bladder wall thickening and mucosal hyperenhancement. Pelvic organs: Uterus and ovaries normal. Prominent follicles in the left ovary. Vasculature: Atherosclerosis of the normal caliber abdominal aorta. IVC patent as are the bilateral iliac vessels. Common femoral veins also patent. Lymph nodes: No enlarged lymph nodes in the abdomen or pelvis. Abdominal wall: Mild subcutaneous edema along the lateral proximal thighs. No significant discrepancy between the bilateral lower extremities. Musculoskeletal: Sclerotic lesion in the left ileum likely bone island, stable from prior. Mild degenerative change at L5-S1. No destructive osseous lesion. IMPRESSION: 1. No significant discrepancy of size of the proximal lower extremities. Patent veins. 2. Mild circumference of bladder wall thickening and mucosal hyperenhancement consistent with cystitis. Correlate with urinalysis. 3. Bilateral nephrolithiasis. 4. No evidence of metastatic disease in the abdomen or pelvis. Electronically signed by: Wolf Luna M.D. 09/14/2016 4:58 PM Dictated Date/Time: 09/14/2016 4:48 PM Laboratory Results 09/14/16 14:20 Red Blood Count 3.83, Mean Corpuscular Volume 90.3, Mean Corpuscular Hemoglobin 31.1, Mean Corpuscular Hemoglobin Concent 34.4, Mean Platelet Volume 9.2, Neutrophils (%) (Auto) 50.6, Lymphocytes (%) (Auto) 39.4, Monocytes (%) (Auto) 7.5, Eosinophils (%) (Auto) 2.0, Basophils (%) (Auto) 0.4, Neutrophils # (Auto) 3.73, Lymphocytes # (Auto) 2.91, Monocytes # (Auto) 0.55, Eosinophils # (Auto) 0.15, Basophils # (Auto) 0.03 09/14/16 14:20 Test 09/14/16 14:20 09/14/16 14:30 White Blood Count 7.38 K/uL (4.8-10.8) Red Blood Count 3.83 M/uL (4.2-5.4) Hemoglobin 11.9 g/dL (12.0-16.0) Hematocrit 34.6 % (37-47) Mean Corpuscular Volume 90.3 fL (80-100) Mean Corpuscular Hemoglobin 31.1 pg (25-34) Mean Corpuscular Hemoglobin Concent 34.4 g/dl (32-36) Platelet Count 240 K/uL (130-400) Mean Platelet Volume 9.2 fL (7.4-10.4) Neutrophils (%) (Auto) 50.6 % Lymphocytes (%) (Auto) 39.4 % Monocytes (%) (Auto) 7.5 % Eosinophils (%) (Auto) 2.0 % Basophils (%) (Auto) 0.4 % Neutrophils # (Auto) 3.73 K/uL (1.4-6.5) Lymphocytes # (Auto) 2.91 K/uL (1.2-3.4) Monocytes # (Auto) 0.55 K/uL (0.11-0.59) Eosinophils # (Auto) 0.15 K/uL (0-0.5) Basophils # (Auto) 0.03 K/uL (0-0.2) RDW Standard Deviation 46.3 fL (36.4-46.3) RDW Coefficient of Variation 13.9 % (11.5-14.5) Immature Granulocyte % (Auto) 0.1 % Immature Granulocyte # (Auto) 0.01 K/uL (0.00-0.02) Erythrocyte Sedimentation Rate 8 mm/hr (0-21) Prothrombin Time 11.0 SECONDS (9.0-12.0) Prothromb Time International Ratio 1.0 (0.9-1.1) Activated Partial Thromboplast Time 32.9 SECONDS (21.0-31.0) Partial Thromboplastin Ratio 1.3 D-Dimer 610 ug/L FEU (0-500) Anion Gap 5.0 mmol/L (3-11) Est Creatinine Clear Calc Drug Dose 76.1 ml/min Estimated GFR () 91.3 Estimated GFR (Non- 78.8 BUN/Creatinine Ratio 8.4 (10-20) Calcium Level 8.7 mg/dl (8.5-10.1) Magnesium Level 1.7 mg/dl (1.8-2.4) Total Bilirubin 0.2 mg/dl (0.2-1) Direct Bilirubin < 0.1 mg/dl (0-0.2) Aspartate Amino Transf (AST/SGOT) 19 U/L (15-37) Alanine Aminotransferase (ALT/SGPT) 23 U/L (12-78) Alkaline Phosphatase 65 U/L (45-117) Total Creatine Kinase 99 U/L (26-192) Creatine Kinase MB 3.1 ng/ml (0.5-3.6) Creatine Kinase MB Ratio 3.1 (0-3.0) Troponin I < 0.015 ng/ml (0-0.045) C-Reactive Protein 0.42 mg/dl (0-0.29) Pro-B-Type Natriuretic Peptide 161 pg/ml (0-450) Total Protein 6.5 gm/dl (6.4-8.2) Albumin 3.6 gm/dl (3.4-5.0) Lipase 106 U/L (73-393) Thyroid Stimulating Hormone (TSH) 2.570 uIu/ml (0.300-4.500) Urine Color YELLOW Urine Appearance CLEAR (CLEAR) Urine pH 5.5 (4.5-7.5) Urine Specific [place] 1.008 (1.000-1.030) Urine Protein NEG (NEG) Urine Glucose (UA) NEG (NEG) Urine Ketones NEG (NEG) Urine Occult Blood NEG (NEG) Urine Nitrite NEG (NEG) Urine Bilirubin NEG (NEG) Urine Urobilinogen NEG (NEG) Urine Leukocyte Esterase NEG (NEG) Laboratory results reviewed by me Medications Administered Medications (Trade) Dose Ordered Sig/Marcus Route Start Time Stop Time Status Last Admin Dose Admin Potassium Chloride (Klor-Con M10) 40 meq NOW STAT PO 09/14/16 17:49 09/14/16 17:50 DC 8/1/17 18:33 40 MEQ ECG Indication: other (LE edema) Rate (beats per minute): 75 Rhythm: sinus rhythm Findings: 1st degree AV block, no acute ischemic change, no ectopy ED Course 1408: The patient was evaluated in room B11. A complete history and physical exam was performed. 1749: Ordered Potassium Chloride 40 meq PO 1800: I reevaluated the patient. Discussed results and discharge instructions: She verbalized understanding and agreement. The patient is ready for discharge. Medical Decision Prior records reviewed and summarized above. Triage Nursing notes reviewed and agree them. Additional history obtained from the family. The patient's history was concerning for swelling in the legs. Differential diagnosis: Etiologies such as DVT, joint effusion, infection, trauma, muscular, lymphedema , idiopathic, CHF, medication, as well as others were entertained.. Physical examination: The physical examination revealed no signs of infection. Neurovascularly intact. ER treatment provided: Oral potassium DARIUS stockings On reassessment the patient felt better. Diagnostics interpreted by me: The labs revealed an unremarkable CBC and chemistry panel. Cardiac markers negative. BNP is negative. LFTs and protein negative. Albumin normal. D- dimer mildly elevated. Imaging studies: Ultrasounds of the bilateral lower extremities. Chest CT. CT of the abdomen and pelvis with venogram phase. No DVT or vascular abnormalities noted. The patient has no diagnostic abnormalities. She has lower extremity edema. I discussed her medications with the pharmacist. She is on moderate doses of ibuprofen and high doses of Neurontin. These can cause lower extremity edema. She will reduce the dose of the Neurontin and use the eye department sparingly. She will use DARIUS stockings which were provided here. She will consult out of her diet. She'll elevate the legs and she'll follow-up with her primary physician tomorrow. By the evaluation outlined above emergent etiologies such as septic joint, trauma, infection, CHF, as well as others were deemed relatively unlikely. The patient was informed about the findings as listed above. All questions were answered and she was pleased with the treatment. Return instructions were outlined and the patient was discharged in stable condition. Referral: The patient was referred back to her primary care physician for follow-up for a recheck of the current condition. Medication Reconcilliation Current Medication List: was personally reviewed by me Blood Pressure Screening Patient's blood pressure: Normal blood pressure Blood pressure disposition: Did not require urgent referral Impression Primary Impression: Lower extremity edema Scribe Attestation The scribe's documentation has been prepared under my direction and personally reviewed by me in its entirety. I confirm that the note above accurately reflects all work, treatment, procedures, and medical decision making performed by me. Departure Information Dispostion Home / Self-Care Referrals Susu Soto C.R.N.P (PCP) Forms HOME CARE DOCUMENTATION FORM, IMPORTANT VISIT INFORMATION, WORK / SCHOOL INSTRUCTIONS Patient Instructions My [facility] Additional Instructions Compression stockings daily as directed. Elevate your legs. Minimize sodium intake as discussed. Read the packaging labels. Decrease the Neurontin to 800 mg twice daily as this may contribute to lower extremity edema at the higher doses. Minimize use of ibuprofen. Continue other medications. Follow-up with your primary office tomorrow. Return to the ER for worsening leg swelling, rash, severe pain, chest pain, difficulty breathing, fevers, vomiting, worsening of your condition, or as needed.
== END 2016-09-14 18:37 | disposition home or self-care (01) ==
LOC: C.EDB 13:29
DX: R60.0 Localized edema (principal); Z85.3 Personal history of malignant neoplasm of breast; M54.9 Dorsalgia, unspecified; G89.29 Other chronic pain; F17.210 Nicotine dependence, cigarettes, uncomplicated; Z79.899 Other long term (current) drug therapy

== ENCOUNTER → 2016-09-20 | Outpatient (CLI) | payer OTHER ==
[~2016-09-20] MED LIST changes: +ABL/5 PO; -ABL5 PO; +CITA40TA12 PO; -CLX20 PO
[2016-09-20 18:44] LABS: BLOOD UREA NITROGEN 5 mg/dl (7-18); BUN/CREATININE RATIO 6.1 (10-20); CALCIUM 8.8 mg/dl (8.5-10.1); CARBON DIOXIDE 21 mmol/L (21-32); CHLORIDE 108 mmol/L (98-107); CREATININE 0.89 mg/dl (0.60-1.20); GLUCOSE 100 mg/dl (70-99); POTASSIUM 3.6 mmol/L (3.5-5.1); SODIUM 138 mmol/L (136-145)
== END | disposition home or self-care (01) ==
LOC: C.LABPVFM 13:19
PROVIDERS: ATTEND Nurse Practitioner
DX: Z00.00 Encounter for general adult medical examination without abnormal findings (principal)

== ENCOUNTER → 2016-10-04 | Outpatient (CLI) | payer OTHER ==
--- NOTE | 2016-10-04 15:24 | MAMMOGRAPHY REPORT ---
BILATERAL DIGITAL DIAGNOSTIC MAMMOGRAM TOMOSYNTHESIS WITH CAD: 10/04/2016 CLINICAL HISTORY: 46-year-old woman with a personal history of right breast cancer status post breast conservation treatment. Also benign MRI guided left breast biopsy performed 09/19/2015. TECHNIQUE: Bilateral CC and MLO 2-D and tomosynthesis images, spot mag right CC and ML views were obt ained. Current study was also evaluated with a Computer Aided Detection (CAD) system. COMPARISON: Comparison is made to exams dated: 04/28/2016 mammogram, 10/08/2015 specimen, 10/08/2015 lo calization, 10/01/2015 mammogram, 10/01/2015 MRI biopsy, and 10/01/2015 ultrasound - [facility]. BREAST COMPOSITION: The tissue of both breasts is heterogeneously dense, which may obscure small mas ses. FINDINGS: There is expected architectural distortion in the approximate 3:00 to one third of the righ t breast, at the site of prior lumpectomy. There is mild diffuse skin thickening and trabecular tanvir a of the right breast. There is a stable metallic biopsy marker in the central left breast, denoting the site of prior MRI guided biopsy. No obvious new mass, architectural distortion or cluster of hagan spicious microcalcifications is seen bilaterally. IMPRESSION: ACR-BI-RADS CATEGORY 3: PROBABLY BENIGN 1. Stable bilateral mammograms, including postsurgical/posttreatment changes in the right breast, an d post biopsy changes in the left breast. 2. A six-month follow-up right diagnostic mammogram including spot magnification views is recommende d to ensure longer stability after treatment. 3. A breast MRI now is recommended to ensure stability after biopsy and also for additional surveill ance. These results and recommendations were discussed with the patient at the time of the exam. Approximately 10% of breast cancers are not detected with mammography. A negative mammographic report should not delay biopsy if a clinically suggestive mass is present. Geovanna Mayfield M.D. ay/:10/04/2016 09:59:12 Irish Moss Bleacher: Martina ROMAN)(Marlen), [facility] letter sent: Follow Up Recommended 3 BI-RADS Code: ACR-BI-RADS Category 3: Probably Benign
== END | disposition home or self-care (01) ==
LOC: C.MAMM 08:27
PROVIDERS: ATTEND Physician Assistant Medical
DX: Z08 Encounter for follow-up examination after completed treatment for malignant neoplasm (principal); Z85.3 Personal history of malignant neoplasm of breast

== ENCOUNTER → 2016-10-14 | Outpatient (CLI) | payer OTHER ==
[~2016-10-14] MED LIST changes: +GADAVIST IV PRN
--- NOTE | 2016-10-15 15:32 | MAMMOGRAPHY REPORT ---
BREAST MRI OF BOTH BREASTS : 10/14/2016 CLINICAL HISTORY: History of right breast cancer status post lumpectomy September 2015. The patient pre sents for follow-up after benign MRI guided biopsy of the left breast. COMPARISON: Comparison is made to exams dated: 04/28/2016 mammogram, 10/01/2015 mammogram, 10/01/2015 M RI biopsy, 09/29/2015 breast MRI, and 09/03/2015 mammogram - [facility]. Technique: The patient was placed prone in a dedicated breast imaging coil. Precontrast axial T1-roxy ghted, axial T2-weighted fat saturation, and axial T1-weighted fat saturation images were obtained. After the administration of 6.5 mL of Gadavist IV contrast, sequential T1-weighted fat saturation shelbi ges were obtained. Subtraction images were obtained of the dynamic contrast enhanced sequences, and 3-D reformations were performed. The SCM-GL software was used for kinetic analysis. Findings: Right breast: There is mild to moderate background parenchymal enhancement. There are postsurgical changes in the r ight breast from prior lumpectomy. Additionally, there is mild diffuse skin thickening and T2 hyperi ntensity, likely due to radiation therapy. There are no suspicious enhancing masses or areas of abno rmal enhancement within the right breast. Left breast: There is moderate to marked background parenchymal enhancement, which lowers the sensiti vity of the exam. Susceptibility artifact is seen within the left 6:00 breast middle depth related t o biopsy marker clip from prior benign MRI guided biopsy. There are no suspicious enhancing masses o r areas of abnormal enhancement within the left breast. There is no evidence of axillary adenopathy. The chest wall structures are negative. Extramammary s oft tissues are unremarkable. IMPRESSION: ACR BI-RADS CATEGORY 2: BENIGN Expected post treatment changes in the right breast, with no MRI evidence of malignancy in either jose ast. As recommended on the recent diagnostic mammogram report, recommend follow-up diagnostic mammog adelso of the right breast in 6 months to reevaluate posttreatment changes. Juany Butler M.D. /:10/14/2016 20:43:03 Grocery Supervisor: therapeutic recreation director, [facility] BI-RADS Code: ACR BI-RADS Category 2: Benign
== END | disposition home or self-care (01) ==
LOC: C.MRI 06:44
PROVIDERS: ATTEND Physician Assistant Medical
DX: C50.111 Malignant neoplasm of central portion of right female breast (principal)

== ENCOUNTER → 2017-04-07 | Outpatient (CLI) | payer BC, OTHER ==
[~2017-04-07] MED LIST changes: -GADAVIST IV PRN
--- NOTE | 2017-04-07 14:04 | MAMMOGRAPHY REPORT ---
UNILATERAL RIGHT DIGITAL DIAGNOSTIC MAMMOGRAM TOMOSYNTHESIS WITH CAD: 04/07/2017 CLINICAL HISTORY: 46-year-old woman with a personal history of right breast cancer status post breast conservation treatment presents for a close follow-up in the right breast. TECHNIQUE: Right breast CC and MLO 2-D and tomosynthesis images, spot magnification right CC and ML v iews were obtained. Current study was also evaluated with a Computer Aided Detection (CAD) system. COMPARISON: Comparison is made to exams dated: 10/04/2016 mammogram, 09/03/2015 mammogram, 08/27/2015 m ammogram, 02/25/2015 mammogram, 08/30/2014 mammogram, and 08/23/2014 mammogram - [facility] enter. BREAST COMPOSITION: The tissue of the right breast is heterogeneously dense, which may obscure small masses. FINDINGS: There is expected architectural distortion and surgical clips in the retroareolar and 2:00 to 3:00 right breast, at the site of prior lumpectomy. Mild skin irregularity and skin thickening of the right breast, likely related to prior treatment. There are 2 benign rim calcifications and line ar sutural calcification in the right breast, which are benign. No new suspicious grouping or cluste r of microcalcifications is seen. No developing mass, unexpected architectural distortion or asymmet ry. IMPRESSION: ACR-BI-RADS CATEGORY 3: PROBABLY BENIGN 1. Stable expected posttreatment changes in the right breast, without definite mammographic evidence of malignancy. Recommend another close follow-up right diagnostic mammogram including spot magnific ation views to ensure at least 2 years of stability after treatment. Annual left mammography will al so be due at that time. 2. Also consider additional surveillance with breast MRI, given the personal history of right breast cancer and heterogeneously dense breasts. These results and recommendations were discussed with the patient at the time of the exam. Approximately 10% of breast cancers are not detected with mammography. A negative mammographic report should not delay biopsy if a clinically suggestive mass is present. Geovanna Mayfield M.D. ay/:04/07/2017 09:14:53 Adjunct Writing Instructor: José Miguel Harvey RT(R)(Marlen), [facility] letter sent: Follow Up Recommended 3 BI-RADS Code: ACR-BI-RADS Category 3: Probably Benign
== END | disposition home or self-care (01) ==
LOC: C.MAMM 08:34
PROVIDERS: ATTEND Physician Assistant Medical
DX: Z85.3 Personal history of malignant neoplasm of breast (principal); Z08 Encounter for follow-up examination after completed treatment for malignant neoplasm

== ENCOUNTER → 2017-04-15 | Outpatient (CLI) | payer BC, OTHER ==
--- NOTE | 2017-04-15 14:17 | DIAGNOSTIC IMAGING REPORT ---
R FINGER(S) MIN 2 VIEWS ROUTINE CLINICAL HISTORY: 46 years-old Female presenting with THUMB PAIN RIGHT. TECHNIQUE: Frontal, oblique, and lateral views the right first finger were obtained. COMPARISON: None. FINDINGS: Degenerative changes noted at the trapezium-first metacarpal articulation. The first metacarpophalangeal and interphalangeal joints are preserved. No acute fracture or malalignment. No soft tissue swelling is apparent. IMPRESSION: 1. No acute osseous injury of the right first finger. 2. Degenerative changes characteristic of osteoarthritis at the first carpometacarpal articulation. Electronically signed by: Wolf Luna M.D. 04/15/2017 2:15 PM Dictated Date/Time: 04/15/2017 2:14 PM
[2017-04-15 17:37] LABS: BLOOD UREA NITROGEN 7 mg/dl (7-18); CALCIUM 8.8 mg/dl (8.5-10.1); CARBON DIOXIDE 27 mmol/L (21-32); CREATININE 0.83 mg/dl (0.60-1.20); GLUCOSE 61 mg/dl (70-99); POTASSIUM 3.7 mmol/L (3.5-5.1); SODIUM 138 mmol/L (136-145); URIC ACID 5.2 mg/dl (2.6-7.2)
== END | disposition home or self-care (01) ==
LOC: C.RADPV 14:02
PROVIDERS: ATTEND Nurse Practitioner
DX: M79.644 Pain in right finger(s) (principal)

== ENCOUNTER → 2017-09-23 | Outpatient (CLI) | payer BC, OTHER ==
[~2017-09-23] MED LIST changes: +ABL10 PO; +ALBINS/ INH; -ALBU18002 INH; +CLOTCRE5 TOP; +OXYC-164 PO; -OXYC20TA50 PO; +PRED20TA PO; -TRAM-10 PO; +VNTHFA/IN INH
[2017-09-23 08:29] VITALS: BP 101/69; PULSE 81; TEMP 36.6; O2SAT 98
--- NOTE | 2017-09-23 09:34 | Radiation Oncology Follow-Up ---
Radiation Oncology Follow-Up Date of Visit Sep 23, 2017. Reason For Visit Annual follow up Radiation Completion Date finished 01-06-2016 Diagnosis (1) Breast cancer Status: Acute Onset Date: 09/03/2015 Histology Subtype: Ductal Stage: l (A) Permanent Comment: Abnormal mammogram 08/27/2015 Status post stereotactic biopsy of the right breast 09/03/2015 revealing infiltrating ductal carcinoma Estrogen receptor positive Status post breast MRI 09/29/2015 Status post MRI guided biopsy of the left breast 10/01/2015, benign Status post lumpectomy with sentinel lymph node biopsy 10/08/2015 No residual tumor Stage pT1a p N0M0 Status post completion of radiation therapy 01/06/2016 received 5130 cGy utilizing hypo-fractionation Patient declined antiestrogen therapy Last Edited By: Christen Wagner on Sep 23, 2017 09:29 History of Present Illness Ms. Peña had an abnormal mammogram 08/30/2014. This showed grouped calcifications in the right breast at 12:00, which are probably benign and likely represent milk of calcium. Recommend follow-up mammogram of the right breast in 6 months for reevaluation. Multiple bilateral benign cysts. Questionable architectural distortion in the right lateral breast did not persist on additional views, without corresponding sonographic abnormality evident. Findings benign and felt to represent normal fibroglandular tissue. 6 month mammogram was recommended for stability. She had a recheck mammogram 02/25/2015. This showed stable 13 mm cluster of probable benign microcalcifications within the central right breast dating back to 08/30/2014. However, longer stability as needed and another short interval follow-up right mammogram with repeat spot magnification views is recommended in 6 months. She'll be due for left breast mammogram at that time. She had a bilateral mammogram 08/27/2015. This showed abnormality of the right breast and stereotactic guided right breast biopsy was recommended for a 9 mm cluster of amorphous microcalcifications in the right central breast. She underwent a stereotactic guided biopsy 09/03/2015. This revealed infiltrating ductal carcinoma grade 1. Assure receptor was positive. There was no DCIS or LCIS. There was no lymphovascular invasion. There were 2 sites that were 0.1 and 0.25 cm in greatest dimension. Specimen [id number]. She then underwent breast MRIs 09/29/2015. This showed suspect ability artifact from a metallic biopsy marker is seen in the central right breast, denoting the location of the previous stereotactic biopsy yielding an infiltrating carcinoma. This is very subtle possibly non-mass enhancement versus background parenchymal enhancement medial and superior to the biopsy marker measuring approximately 3 cm in diameter. This is located within 2 cm of the biopsy marker and can likely be excised at the time of definitive surgical management. It should be noted that residual microcalcifications are present mammographically 1.9 cm laterally and 1.3 cm superior to the metallic biopsy marker mammographically, and considered bracketing at time of definitive surgery, if breast conservation therapy is desired. 3 conspicuous enhancing foci in the 6:00 medial to posterior left breast that are intermediate. Although these could be within the range of background, given moderate back on parenchymal enhancement bilaterally, the most anterior lesion demonstrates central suspicious without kinetics. Further second look ultrasound and possible ultrasound-guided biopsy was recommended. She underwent an MRI guided biopsy of the left breast finding. On 10/01/2015 this showed a benign area of fibrocystic changes. Specimen [id number]. She underwent a lumpectomy and sentinel lymph node biopsy 10/08/2015. The lumpectomy specimen showed atypical lobular hyperplasia. The specimen was negative for DCIS and invasive carcinoma. Additional inferior margin was taken and was negative for DCIS and invasive cancer. An additional superior margin also negative for DCIS and invasive cancer. One sentinel lymph node was evaluated and was negative for metastatic disease. Specimen [id number]. With this finding she was referred to our office to discuss radiation therapy. She underwent CT simulation and was found to be a candidate for hypo- fractionation. Radiation was completed 01/06/2016. She received 5130 cGy. Interim History She has been doing well over the past year in regards to her breast. She is noted no masses or tenderness no change of the axilla. She has had no swelling of her arm. She is up-to-date on mammography. She had a recheck mammogram April 07, 2017. She has declined antiestrogen therapy. She continues to smoke. Today we discussed smoke cessation. Allergies Coded Allergies: Aspirin (Verified Allergy, Severe, PROBLEMS BREATHING, 07/13/17) Naproxen (Verified Allergy, Severe, SOB, 07/13/17) TAKES IBUPROFEN AT HOME without issue Penicillins (Verified Allergy, Severe, ITCHING/HIVES, 07/13/17) Propoxyphene (Verified Allergy, Severe, BREATHING PROBLEMS, 07/13/17) Calcium Channel Blockers (Verified Allergy, Unknown, UNKNOWN, 07/13/17) Home Medications Scheduled Amphetamine-Dextroamphetamine 20MG (Adderall 20MG), 20 MG PO TID Aripiprazole (Abilify), 15 MG PO DAILY Baclofen (Lioresal), 10 MG PO BID Cetirizine (Zyrtec), 10 MG PO DAILY Cholecalciferol (Vitamin D), 4,000 UNITS PO QAM Citalopram Hydrobromide (Celexa), 1 TAB PO DAILY Fluticasone Propionate (Nasal) (Flonase Allergy Relief), 1 SPRAY MAGALYS BID Gabapentin (Neurontin), 900 MG PO TID Montelukast Sodium (Singulair), 1 TAB PO DAILY Oxycodone Hcl (Oxycodone Hcl), 10 MG PO Q12 Simvastatin (Zocor), 40 MG PO QAM Scheduled PRN Albuterol Hfa (Ventolin Hfa), 2 PUFFS INH DIRECTED PRN for Shortness of Breath Albuterol Sulf (Proventil 0.083% 2.5MG/3ML), 2.5 MG INH QID PRN for dyspnea Clotrimazole (Topical) (Clotrimazole Anti-Fungal), 1 APPLN TOP BID PRN for Itching Hydrocodone/Acetaminophen 10MG/325MG ([place] 10MG/325MG), 1 TAB PO 5XD PRN for Severe Pain Ibuprofen (Motrin), 800 MG PO QID PRN for Pain Review of Systems Gastrointestinal: Symptoms: WNL Oral: Symptoms: No Problems Other Oral Symptoms: Currently w/fungal infection around outside of mouth - on medication now Respiratory: Symptoms: WNL Sputum Character: Clear sputum and on occassion is yellow; Other Respiratory: Continues to smoke; Urinary: Symptoms: WNL Skin: Symptoms: No Problems Breast: Right Upper Arm Measurement: 28.0 Right Mid Arm Measurement: 23.0 Right Wrist Measurement: 16.2 Left Upper Arm Measurement: 27.8 Left Mid Arm Measurement: 21.5 Left Wrist Measurement: 16.1 Arm Dominence: Right Patient Cosmetic Evaluation: Excellent Staff Cosmetic Evalaluation: Excellent Physical Exam Vital Signs Date Time Temp Pulse Resp B/P (MAP) Pulse Ox O2 Delivery O2 Flow Rate FiO2 09/23/17 08:29 36.6 81 16 101/69 98 Fatigue: None General Appearance: no apparent distress Eyes: normal inspection, EOMI ENT: normal ENT inspection, hearing grossly normal Neck: no adenopathy, thyroid normal Respiratory/Chest: no respiratory distress, no accessory muscle use, + wheezing Breast: Examination reveals well-healed incisions of the right breast. There are no masses or tenderness and no axillary adenopathy. She has no skin retractions or nipple changes. Using the Foster score cosmesis she has a good outcome. The left breast showed no masses or tenderness and no axillary adenopathy. Cardiovascular: regular rate, rhythm, no gallop, no murmur Extremities: no pedal edema Neurologic/Psychiatric: no motor/sensory deficits, alert, normal mood/affect Skin: warm/dry Pain Management Patient Reports Pain: No Side: Bilateral Pain Location: None Patient Preferred Pain Scale: 0 - 10 Initial Pain Intensity: 0.0 Pain Management Plan She has chronic low back pain. Her pain is controlled with her current medications. Laboratory Laboratory Results: not applicable Pathology Pathology Results: were reviewed, and pertinent findings noted in HPI Imaging Imaging Studies: were reviewed, and pertinent findings noted below Imaging Comments Patient: AYLIN PEÑA [facility] Rec: [id number] Address1: [address] [place] [address] Address2: [facility] ID: [id number] Date: 1970 Sex: F Ref Phy: Susu Soto C.R.N.P Att Phy: Christen Wagner PA-C Thalia Phy: Susu Soto C.R.N.P Inter Phy: Geovanna Mayfield MD [facility]: [place] [address] SC: SonalMAMM Report #: [id number] Lab Associate: JEAN CLAUDE Diagnosis: 6 MO F/U Service Date: 10/04/16 MNE: MAMM1 Ordering Dr: Christen Wagner PA-C CC: Christen Wagner PA-C CONF: DICTATED BY: Geovanna Mayfield MD MAMMOGRAPHY REPORT BILATERAL DIGITAL DIAGNOSTIC MAMMOGRAM TOMOSYNTHESIS WITH CAD: 10/04/2016 CLINICAL HISTORY: 46-year-old woman with a personal history of right breast cancer status post breast conservation treatment. Also benign MRI guided left breast biopsy performed 09/19/2015. TECHNIQUE: Bilateral CC and MLO 2-D and tomosynthesis images, spot mag right CC and ML views were obtained. Current study was also evaluated with a Computer Aided Detection (CAD) system. COMPARISON: Comparison is made to exams dated: 04/28/2016 mammogram, 10/08/2015 specimen, 10/08/2015 localization, 10/01/2015 mammogram, 10/01/2015 MRI biopsy, and 10/01/2015 ultrasound - [facility]. BREAST COMPOSITION: The tissue of both breasts is heterogeneously dense, which may obscure small masses. FINDINGS: There is expected architectural distortion in the approximate 3:00 to one third of the right breast, at the site of prior lumpectomy. There is mild diffuse skin thickening and trabecular edema of the right breast. There is a stable metallic biopsy marker in the central left breast, denoting the site of prior MRI guided biopsy. No obvious new mass, architectural distortion or cluster of suspicious microcalcifications is seen bilaterally. IMPRESSION: ACR-BI-RADS CATEGORY 3: PROBABLY BENIGN 1. Stable bilateral mammograms, including postsurgical/posttreatment changes in the right breast, and post biopsy changes in the left breast. 2. A six-month follow-up right diagnostic mammogram including spot magnification views is recommended to ensure longer stability after treatment. 3. A breast MRI now is recommended to ensure stability after biopsy and also for additional surveillance. These results and recommendations were discussed with the patient at the time of the exam. Approximately 10% of breast cancers are not detected with mammography. A negative mammographic report should not delay biopsy if a clinically suggestive mass is present. Geovanna Mayfield M.D. ay/:10/04/2016 09:59:12 Agricultural Adviser: Martina ROMAN)(Marlen), [facility] letter sent: Follow Up Recommended 3 BI-RADS Code: ACR-BI-RADS Category 3: Probably Benign Dictated by: Geovanna Mayfield MD Signed by: Geovanna Mayfield MD Patient: AYLIN PEÑA [facility] Rec: [id number] Address1: [address] [place] [address] Address2: Acct ID: [id number] Date: 1970 Sex: F Ref Phy: Christen Wagner PA-C Att Phy: Christen Wagner PA-C Thalia Phy: Susu Soto C.R.N.P Inter Phy: Juany Butler MD [facility] Zip: [place] [address] SC: [email or web address].MRI Report #: [id number] Lab Associate: JOSH Diagnosis: ABNORMAL MAMMOGRAM Service Date: 10/14/16 MNE: MAMM1 Ordering Dr: Christen Wagner PA-C CC: Christen Wagner PA-C CONF: DICTATED BY: Juany Butler MD MAMMOGRAPHY REPORT BREAST MRI OF BOTH BREASTS : 10/14/2016 CLINICAL HISTORY: History of right breast cancer status post lumpectomy September 2015. The patient presents for follow-up after benign MRI guided biopsy of the left breast. COMPARISON: Comparison is made to exams dated: 04/28/2016 mammogram, 10/01/2015 mammogram, 10/01/2015 MRI biopsy, 09/29/2015 breast MRI, and 09/03/2015 mammogram - [facility]. Technique: The patient was placed prone in a dedicated breast imaging coil. Precontrast axial T1-weighted, axial T2-weighted fat saturation, and axial T1- weighted fat saturation images were obtained. After the administration of 6.5 mL of Gadavist IV contrast, sequential T1-weighted fat saturation images were obtained. Subtraction images were obtained of the dynamic contrast enhanced sequences, and 3-D reformations were performed. The [employer] software was used for kinetic analysis. Findings: Right breast: There is mild to moderate background parenchymal enhancement. There are postsurgical changes in the right breast from prior lumpectomy. Additionally, there is mild diffuse skin thickening and T2 hyperintensity, likely due to radiation therapy. There are no suspicious enhancing masses or areas of abnormal enhancement within the right breast. Left breast: There is moderate to marked background parenchymal enhancement, which lowers the sensitivity of the exam. Susceptibility artifact is seen within the left 6:00 breast middle depth related to biopsy marker clip from prior benign MRI guided biopsy. There are no suspicious enhancing masses or areas of abnormal enhancement within the left breast. There is no evidence of axillary adenopathy. The chest wall structures are negative. Extramammary soft tissues are unremarkable. IMPRESSION: ACR BI-RADS CATEGORY 2: BENIGN Expected post treatment changes in the right breast, with no MRI evidence of malignancy in either breast. As recommended on the recent diagnostic mammogram report, recommend follow-up diagnostic mammograms of the right breast in 6 months to reevaluate posttreatment changes. Juany Butler M.D. /:10/14/2016 20:43:03 Agricultural Adviser: automotive generator repairer, [facility] BI-RADS Code: ACR BI-RADS Category 2: Benign Dictated by: Juany Butler MD Signed by: Juany Butler MD Patient: AYLIN PEÑA [facility] Rec: [id number] Address1: [address] [place] [address] Address2: Acct ID: [id number] Date: 1970 Sex: F Ref Phy: Christen Wagner PA-C Att Phy: Christen Wagner PA-C Thalia Phy: Susu Soto C.R.N.P Inter Phy: Geovanna Mayfield MD [facility] Zip: [place] [address] SC: C.MAMM Report #: [id number] Lab Associate: DREA Diagnosis: 6 MONTH F/U RIGHT Service Date: 04/07/17 MNE: MAMM1 Ordering Dr: Christen Wagner PA-C CC: Christen Wagner PA-C CONF: DICTATED BY: Geovanna Mayfield MD MAMMOGRAPHY REPORT UNILATERAL RIGHT DIGITAL DIAGNOSTIC MAMMOGRAM TOMOSYNTHESIS WITH CAD: 04/07/2017 CLINICAL HISTORY: 46-year-old woman with a personal history of right breast cancer status post breast conservation treatment presents for a close follow-up in the right breast. TECHNIQUE: Right breast CC and MLO 2-D and tomosynthesis images, spot magnification right CC and ML views were obtained. Current study was also evaluated with a Computer Aided Detection (CAD) system. COMPARISON: Comparison is made to exams dated: 10/04/2016 mammogram, 09/03/2015 mammogram, 08/27/2015 mammogram, 02/25/2015 mammogram, 08/30/2014 mammogram, and 11/2014 mammogram - [facility]. BREAST COMPOSITION: The tissue of the right breast is heterogeneously dense, which may obscure small masses. FINDINGS: There is expected architectural distortion and surgical clips in the retroareolar and 2:00 to 3:00 right breast, at the site of prior lumpectomy. Mild skin irregularity and skin thickening of the right breast, likely related to prior treatment. There are 2 benign rim calcifications and linear sutural calcification in the right breast, which are benign. No new suspicious grouping or cluster of microcalcifications is seen. No developing mass, unexpected architectural distortion or asymmetry. IMPRESSION: ACR-BI-RADS CATEGORY 3: PROBABLY BENIGN 1. Stable expected posttreatment changes in the right breast, without definite mammographic evidence of malignancy. Recommend another close follow-up right diagnostic mammogram including spot magnification views to ensure at least 2 years of stability after treatment. Annual left mammography will also be due at that time. 2. Also consider additional surveillance with breast MRI, given the personal history of right breast cancer and heterogeneously dense breasts. These results and recommendations were discussed with the patient at the time of the exam. Approximately 10% of breast cancers are not detected with mammography. A negative mammographic report should not delay biopsy if a clinically suggestive mass is present. Geovanna Mayfield M.D. ay/:04/07/2017 09:14:53 Agricultural Adviser: José Miguel ROMAN)(Marlen), [facility] letter sent: Follow Up Recommended 3 BI-RADS Code: ACR-BI-RADS Category 3: Probably Benign Dictated by: Geovanna Mayfield MD Signed by: Geovanna Mayfield MD Assessment & Plan Plan: She is scheduled for diagnostic bilateral digital mammogram October 05. Will await the reading to determine if she needs further MRI follow-up. Continue follow-up with medical oncology and her primary care physician. Today we discussed smoke cessation and weaning off of cigarettes. I offered her information about the 1 800 quit line. She was not interested in any information/literature on smoke cessation. We asked her to return to our office in 1 year. She may call if she has any questions or concerns in the interim. Total Time In Follow-Up I spent 20 minutes speaking to the patient in performing examination. I spent 15 minutes reviewing information and completing this note. Copy To Adam Perez D.O.; Susu Soto C.R.N.P Problem Qualifiers (1) Breast cancer: Breast location: central portion of breast Estrogen receptor status: positive Patient sex: female Laterality: right Qualified Codes: C50.111 - Malignant neoplasm of central portion of right female breast; Z17.0 - Estrogen receptor positive status [ER+]
== END | disposition home or self-care (01) ==
LOC: C.ONC 08:14
PROVIDERS: ATTEND Physician Assistant Medical
DX: Z08 Encounter for follow-up examination after completed treatment for malignant neoplasm (principal); Z92.3 Personal history of irradiation; Z85.3 Personal history of malignant neoplasm of breast

== ENCOUNTER → 2017-10-05 | Outpatient (CLI) | payer BC, OTHER ==
[~2017-10-05] MED LIST changes: -ABL/5 PO; -CLOT1CRE80 TOP; -PRED20TA PO
--- NOTE | 2017-10-05 13:39 | MAMMOGRAPHY REPORT ---
BILATERAL DIGITAL DIAGNOSTIC MAMMOGRAM TOMOSYNTHESIS WITH CAD: 10/05/2017 CLINICAL HISTORY: History of right breast cancer status post lumpectomy September 2015. Also with histor y of benign left breast biopsy. The patient reports no current complaints. TECHNIQUE: Breast tomosynthesis in addition to standard 2D mammography was performed. Current study w as also evaluated with a Computer Aided Detection (CAD) system. Bilateral CC and MLO 2D and tomosynt hesis images and spot magnification right cc and ML views were obtained. COMPARISON: Comparison is made to exams dated: 04/07/2017 mammogram, 10/04/2016 mammogram, 04/28/2016 m ammogram, 10/01/2015 mammogram, 09/03/2015 mammogram, and 08/27/2015 mammogram - [facility] enter. BREAST COMPOSITION: The tissue of both breasts is heterogeneously dense, which may obscure small mass es. FINDINGS: There are stable post surgical changes in the right breast from prior lumpectomy, including stable ar chitectural distortion and surgical clips at the lumpectomy bed. Mild diffuse right breast skin thic kening is stable and is likely related to prior radiation therapy. A linear scar marker overlies the right anterior breast. The remainder of both breasts are stable compared to prior exams, without suspicious masses, calcific ations, or areas of architectural distortion noted. A biopsy clip is again noted within the left addis tral breast from prior benign biopsy. IMPRESSION: ACR BI-RADS CATEGORY 2: BENIGN Stable posttreatment changes in the right breast, without mammographic evidence of malignancy in eith er breast. A 1 year screening mammogram is recommended.(10/06/2018) Also consider annual bilateral b reast MRI in addition to annual mammography given the personal history of right breast cancer and het erogeneously dense breast mammographically. The patient has been verbally notified of the results. Some breast cancers are not detected with mammography. A negative mammographic report should not tiff y biopsy if a clinically suggestive mass is present. Juany Butler M.D. /:10/05/2017 09:15:51 Manager Of Hospital: RT Aidan(R)(M), [facility] letter sent: Normal 1/2 BI-RADS Code: ACR BI-RADS Category 2: Benign
== END | disposition home or self-care (01) ==
LOC: C.MAMM 08:48
PROVIDERS: ATTEND Physician Assistant Medical
DX: Z85.3 Personal history of malignant neoplasm of breast (principal); Z08 Encounter for follow-up examination after completed treatment for malignant neoplasm